=== PATIENT | male | born 1940 | race Hispanic/Latino ===

== ENCOUNTER 2023-03-22 18:19 | Emergency (ER) | payer OTHER ==
[~2023-03-22] VITALS: Ht 172.7 cm; Wt 86.2 kg
[2023-03-22] MEDS ORDERED: DiphenhydrAMINE HCL 50 MG/ML VIAL IV STA (18:46)
[2023-03-22] MEDS ORDERED: 0.9%NACL 1000ML 1,000 ML IV ONE (19:00)
[2023-03-22] MEDS ORDERED: SOLU-MEDROL 125MG VIAL IVP ONE (19:00)
[2023-03-22] MEDS ORDERED: FAMOTIDINE 20MG VIAL IV ONE (19:30)
[2023-03-22] MEDS ORDERED: CETI10CA5 PO (21:57)
[2023-03-22] MEDS ORDERED: EPIN0.3P3 IJ (21:57)
[2023-03-22 22:07] VITALS: BP 110/74; PULSE 80; RESP 20; O2SAT 99
== END 2023-03-22 22:22 | disposition home or self-care (01) ==
LOC: EDH 18:19
DX: T63.441A Toxic effect of venom of bees, accidental (unintentional), initial encounter (principal); Z91.030 Bee allergy status
CPT/HCPCS: 99284; 96374; 96375; J1200; J3490; J2930